=== PATIENT | female | born 1970 | race American Indian/Alaskan Native ===

== ENCOUNTER 2016-11-27 10:19 | Emergency (ER) | payer SELFPAY ==
[2016-11-27 10:32] VITALS: BP 126/77
[2016-11-27] MEDS ORDERED: XYLOCAINE 2% INFILTRATI ONE (12:46)
[2016-11-27] MEDS ORDERED: MOTRIN PO ONE (12:46)
--- NOTE | 2016-11-27 13:06 | Emergency Department Report ---
ED Extremity Problem HPI - General Chief complaint: Extremity Problem,Nontraumatic Stated complaint: SWOLLEN FINGER Time Seen by Provider: 11/27/16 12:45 Source: patient Mode of arrival: Ambulatory Limitations: No Limitations - History of Present Illness Initial comments: 46-year-old female with no significant past medical history presents with complaint of swelling surrounding nail edge left distal fingernail. Patient denies fevers chills range of motion intact in fingers visible paronychia left distal finger nail edge. Denies any direct trauma. Has been ongoing for 2 days. MD Complaint: extremity pain Onset/Timin -: days(s) Location: left History of Same: No Radiation: distal Severity scale (0 -10): 4 Quality: aching Consistency: constant Improves with: nothing - Related Data Previous Rx's Medication Instructions Recorded Last Taken Type Ibuprofen [Motrin] 800 mg PO Q8HR PRN #30 tablet 11/27/16 Unknown Rx Sulfamethoxazole/Trimethoprim 1 each PO BID #14 tablet 11/27/16 Unknown Rx [Bactrim DS TAB] Allergies Allergy/AdvReac Type Severity Reaction Status Date / Time No Known Allergies Allergy Unverified 11/27/16 10:28 ED Review of Systems ROS: Stated complaint: SWOLLEN FINGER Other details as noted in HPI Constitutional: denies: chills, fever Eyes: denies: eye pain, eye discharge, vision change ENT: denies: ear pain, throat pain Respiratory: denies: cough, shortness of breath, wheezing Cardiovascular: denies: chest pain, palpitations Endocrine: no symptoms reported Gastrointestinal: denies: abdominal pain, nausea, diarrhea Genitourinary: denies: urgency, dysuria, discharge Musculoskeletal: as per HPI. denies: back pain, joint swelling, arthralgia Skin: denies: rash, lesions Neurological: denies: headache, weakness, paresthesias Psychiatric: denies: anxiety, depression Hematological/Lymphatic: denies: easy bleeding, easy bruising ED Past Medical Hx - Past Medical History Previous Medical History?: No - Surgical History Past Surgical History?: No - Social History Smoking Status: Never Smoker Substance Use Type: None - Medications Home Medications: Home Medications Medication Instructions Recorded Confirmed Last Taken Type Ibuprofen [Motrin] 800 mg PO Q8HR PRN #30 tablet 11/27/16 Unknown Rx Sulfamethoxazole/Trimethoprim 1 each PO BID #14 tablet 11/27/16 Unknown Rx [Bactrim DS TAB] ED Physical Exam - General Limitations: No Limitations General appearance: alert, in no apparent distress - Head Head exam: Present: atraumatic, normocephalic - Eye Eye exam: Present: normal appearance, PERRL, EOMI - ENT ENT exam: Present: mucous membranes moist - Neck Neck exam: Present: normal inspection - Respiratory Respiratory exam: Present: normal lung sounds bilaterally. Absent: respiratory distress - Cardiovascular Cardiovascular Exam: Present: regular rate, normal rhythm. Absent: systolic murmur, diastolic murmur, rubs, gallop - GI/Abdominal GI/Abdominal exam: Present: soft, normal bowel sounds - Extremities Exam Extremities exam: Present: normal inspection - Expanded Upper Extremity Exam Left Hand L/R Back: 1 - paronychia left distal fingertip nail egde middle finger. no clinical felon , no tedneress ro fluctuance at tuft, skin soft. Vascular: Present: normal capillary refill (cap refill less than 1 second) - Back Exam Back exam: Present: normal inspection - Neurological Exam Neurological exam: Present: alert, oriented X3, CN II-XII intact, normal gait - Psychiatric Psychiatric exam: Present: normal affect, normal mood - Skin Skin exam: Present: warm, dry, intact, normal color. Absent: rash ED Course Vital Signs 11/27/16 10:28 Temperature 98.5 F Pulse Rate 84 Respiratory 16 Rate Blood Pressure 126/77 O2 Sat by Pulse 97 Oximetry - I & D Left Distal Finger Type of Procedure: Simple Site: distal left middle fingertip nail edge Blade Size: 11 I & D Procedure: betadine prep Progress: Area infiltrated with 2% lidocaine without epinephrine and anesthesia achieved single stab incision made at top of the nail bed paronychial fold. Tiny amount of purulent drainage, patient expressed significant relief, no significant bleeding. Procedure tolerated well. ED Medical Decision Making - Medical Decision Making A/P: Left distal fingertip paronychia middle finger 1-successful incision and drainage of paronychia. No clinical felon on exam distal fingertip. Distal sensation and distal capillary refill less than 1 second, range of motion PIP DIP and MCP fully intact 2-Bactrim twice a day 7 days 3-advised patient to return to the ED if swelling reaccumulate or if she develops pain and swelling near fingertip tuft. I educated the patient on clinical signs of a felon 4-motrin prn Critical care attestation.: If time is entered above; I have spent that time in minutes in the direct care of this critically ill patient, excluding procedure time. ED Disposition Clinical Impression: Paronychia of finger of left hand, Encounter for incision and drainage procedure Disposition: TO HOME OR SELFCARE Is pt being admited?: No Does the pt Need Aspirin: No Condition: Stable Instructions: Incision and Drainage (ED), Acute Wound Care (ED), Paronychia (ED ) Prescriptions: Ibuprofen [Motrin] 800 mg PO Q8HR PRN #30 tablet PRN Reason: Pain Sulfamethoxazole/Trimethoprim [Bactrim DS TAB] 1 each PO BID #14 tablet Referrals: [facility] [Outside] - 3-5 Days [facility] [Outside] - 3-5 Days Forms: Work/School Release Form(ED) Time of Disposition: 13:11
== END 2016-11-27 13:34 | disposition home or self-care (01) ==
LOC: ED 10:19
DX: L03.012 Cellulitis of left finger (principal)

== ENCOUNTER 2017-03-31 14:02 | Emergency (ER) | payer OTHER, MEDICAID ==
[2017-03-31 14:20] VITALS: BP 131/89
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
[2017-03-31] MEDS ORDERED: MOTRIN PO ONE (18:03)
== END 2017-03-31 18:58 | disposition home or self-care (01) ==
LOC: ED 14:02
DX: M25.511 Pain in right shoulder (principal); H66.001 Acute suppurative otitis media without spontaneous rupture of ear drum, right ear; V49.59XA Passenger injured in collision with other motor vehicles in traffic accident, initial encounter; Y93.89 Activity, other specified; Y92.89 Other specified places as the place of occurrence of the external cause; Y99.8 Other external cause status
CPT/HCPCS: 99282

== ENCOUNTER 2017-10-12 21:40 | Emergency (ER) | payer MEDICAID, OTHER ==
[2017-10-12 21:52] VITALS: BP 127/81
[2017-10-12 23:13] LABS: Bilirubin,Urine NEG (Negative); Blood,Urine SM (Negative); Color,Urine Yellow (Yellow); Mucus,Urine FEW /HPF; Protein,Urine <15 mg/dL mg/dL (Negative); Urobilinogen,Urine < 2.0 mg/dL (<2.0)
== END 2017-10-13 01:47 | disposition left against medical advice (07) ==
LOC: ED 21:40
DX: M54.5 Low back pain (principal); Z53.21 Procedure and treatment not carried out due to patient leaving prior to being seen by health care provider
CPT/HCPCS: 81001